=== PATIENT | female | born 1960 | race Caucasian/White ===

== ENCOUNTER → 2017-11-23 13:29 | Outpatient (CLI) | payer BC, SELFPAY ==
--- NOTE | 2017-11-23 13:33 | RAD_ITS ---
STUDY: X-RAY - LUMBAR SPINE REASON FOR EXAM: Female, 57 years old. Left side lower back pain. TECHNIQUE: 5 view(s) of the lumbar spine were obtained. COMPARISON: None FINDINGS: Normal lumbar lordosis. There is no substantial scoliosis. There is a normal alignment of the vertebrae. There is multilevel endplate spondylosis of the lumbar vertebrae. There is multi-level degenerative disc disease with multi-level disc space narrowing. The soft tissue structures are unremarkable. RAD/L/S Spine Min 4 Views IMPRESSION: Degenerative changes of the spine, as detailed above. Electronically Signed: Mary Carmen Burch MD at 23:37 EDT Tel , Service support ,
== END ==
PROVIDERS: Family Provider Family Medicine; PCP Family Medicine; Visit Provider Nurse Practitioner Family
DX: M54.5 Low back pain (principal)
CPT/HCPCS: 72110

== ENCOUNTER → 2018-06-08 13:46 | Outpatient (CLI) | payer BC, SELFPAY ==
[2018-06-13 11:12] LABS: HPV Reflexed? NOT INDICATED
== END ==
PROVIDERS: Visit Provider Obstetrics & Gynecology
DX: Z12.4 Encounter for screening for malignant neoplasm of cervix (principal)
CPT/HCPCS: 87624; 88175; G0145

== ENCOUNTER → 2019-08-08 07:10 | Outpatient (CLI) | payer SELFPAY ==
--- NOTE | 2019-08-08 07:16 | BI_ITS ---
MAMMOGRAPHY - BILATERAL SCREENING REASON FOR EXAM: Female, 59 years old. Routine annual screening examination. PERTINENT HISTORY: Non-contributory. TECHNIQUE: Digital bilateral breast malaika (3D mammographic acquisition) in the CC and MLO projections. 2-D mediolateral oblique (MLO) and craniocaudad (CC) views of both breasts were obtained. CAD: Full Field Digital Mammography with Computer Added Detection was performed. COMPARISON: Comparison is made with prior study dated June 07, 2017 and June 02, 2016. FINDINGS: Breast Composition: There are scattered areas of fibroglandular density. There are no dominant masses or suspicious calcifications. Stable benign-appearing bilateral axillary lymph nodes. No other significant abnormalities are identified. There has been no significant change since the prior study. BI/SCREEN MAMM (CAD) W/MALAIKA BILAT IMPRESSION: Stable bilateral screening mammogram. Yearly follow-up mammogram recommended. (A) ASSESSMENT CATEGORY: BIRADS Category 2: Benign. A letter regarding these results will be sent to the patient by the facility within 30 days. Approximately 10% of breast cancers are not detected by mammography. A normal mammogram should not delay biopsy of a clinically suspicious abnormality. [id number] Electronically Signed: Juan Fischer, at 9:21 EST , Service support ,
== END ==
PROVIDERS: Family Provider Family Medicine; PCP Family Medicine; Referring Provider Obstetrics & Gynecology; Visit Provider Obstetrics & Gynecology
DX: Z12.31 Encounter for screening mammogram for malignant neoplasm of breast (principal)
CPT/HCPCS: 77063; 77067

== ENCOUNTER → 2020-09-03 11:12 | Outpatient (CLI) | payer SELFPAY ==
[2020-09-08 15:24] LABS: HPV Reflexed? NOT INDICATED
== END ==
PROVIDERS: PCP Family Medicine; Visit Provider Obstetrics & Gynecology
DX: Z12.4 Encounter for screening for malignant neoplasm of cervix (principal)
CPT/HCPCS: 88175; G0145

== ENCOUNTER → 2020-09-16 16:11 | Outpatient (CLI) | payer SELFPAY ==
--- NOTE | 2020-09-16 16:19 | BI_ITS ---
MAMMOGRAPHY - BILATERAL SCREENING REASON FOR EXAM: Female, 60 years old. Routine annual screening examination. PERTINENT HISTORY: Non-contributory. TECHNIQUE: Digital bilateral breast malaika (3D mammographic acquisition) in the CC and MLO projections. 2-D mediolateral oblique (MLO) and craniocaudad (CC) views of both breasts were obtained. CAD: Full Field Digital Mammography with Computer Added Detection was performed. COMPARISON: Comparison is made with prior study dated 08/08/2019 and 06/07/2017. FINDINGS: Breast Composition: There are scattered areas of fibroglandular density. There are no dominant masses or suspicious calcifications. Stable small benign-appearing axillary lymph nodes. No other significant abnormalities are identified. There has been no significant change since the prior study. BI/SCRN MAMM (CAD)W/MALAIKA BILAT IMPRESSION: Stable bilateral screening mammogram. Yearly follow-up mammogram recommended. (A) ASSESSMENT CATEGORY: BIRADS Category 2: Benign. A letter regarding these results will be sent to the patient by the facility within 30 days. Approximately 10% of breast cancers are not detected by mammography. A normal mammogram should not delay biopsy of a clinically suspicious abnormality. [id number] Electronically Signed: Juan Fischer MD at 8:20 EST , Service support ,
== END ==
PROVIDERS: PCP Family Medicine; Referring Provider Obstetrics & Gynecology; Visit Provider Obstetrics & Gynecology
DX: Z12.31 Encounter for screening mammogram for malignant neoplasm of breast (principal)
CPT/HCPCS: 77063; 77067

== ENCOUNTER → 2021-08-19 | Outpatient (CLI) | payer MEDICARE, SELFPAY | END | disposition home or self-care (01) | LOC: LABSPEC 10:55 | PROVIDERS: PCP Family Medicine; Referring Provider Physician Assistant; Visit Provider Physician Assistant | DX: Z11.52 Encounter for screening for COVID-19 (principal) | CPT/HCPCS: 87635; U0003; U0005 ==

== ENCOUNTER 2021-10-07 08:49 | Outpatient (CLI) | payer SELFPAY ==
[2021-10-07 10:15] LABS: Hematocrit 40.2 % (37-47); Hemoglobin 13.5 g/dL (12.0-15.0); Mean Corp Hgb Conc 33.6 g/dL (32-36); Mean Corpuscular Hgb 31.8 pg (27.0-32.0); Mean Corpuscular Volume 94.6 fL (81-99); Mean Platelet Vol. 11.3 fl (6.2-12.0); Platelet Count 273 K/mm3 (150-450); RBC Distribution Width CV 12.5 % (11.6-14.6); RBC Distribution Width SD 43.2 fl (35.1-43.9); Red Blood Count 4.25 M/mm3 (4.2-5.4); White Blood Count 5.8 K/mm3 (4.4-11.0)
[2021-10-07 11:02] LABS: Anion Gap 4 (5-15); BUN 11 mg/dL (7-18); BUN/Creat Ratio 15.9 RATIO (10-20); Calcium,Total 9.2 mg/dL (8.5-10.1); Chloride 108 mmol/L (98-107); Cholesterol 157 mg/dL (200); Creatinine, Serum 0.69 mg/dL (0.55-1.02); EST Glomerular Filtration Rate 91 mL/min (>60); Est Glom Filt Rate - Afr Amer 110 mL/min (>60); Glucose 83 mg/dL (74-106); High Density Lipoprotein 45 mg/dL; Potassium 3.7 mmol/L (3.5-5.1); Sodium Level 139 mmol/L (136-145); Thyroid Stim Hormone (TSH) 1.98 uIU/mL (0.358-3.74); Triglycerides 175 mg/dL; Very Low Density Lipoprotein 35 mg/dL (5-40)
== END 2021-10-07 23:59 | disposition home or self-care (01) ==
PROVIDERS: PCP Family Medicine; Referring Provider Family Medicine; Visit Provider Family Medicine
DX: Z00.00 Encounter for general adult medical examination without abnormal findings (principal)
CPT/HCPCS: 36415; 80048; 80061; 84443; 85027

== ENCOUNTER 2021-10-20 08:30 | Outpatient (CLI) | payer SELFPAY ==
--- NOTE | 2021-10-20 08:35 | BI_ITS ---
MAMMOGRAPHY - BILATERAL SCREENING REASON FOR EXAM: Female, 61 years old. Routine annual screening examination. PERTINENT HISTORY: Non-contributory. Remote right ultrasound-guided breast biopsy. TECHNIQUE: Digital bilateral breast malaika (3D mammographic acquisition) in the CC and MLO projections. 2-D mediolateral oblique (MLO) and craniocaudad (CC) views of both breasts were obtained. CAD: Full Field Digital Mammography with Computer Added Detection was performed. COMPARISON: Comparison is made with prior examination dated 03/16/2021 and 08/08/2019. FINDINGS: Breast Composition: There are scattered areas of fibroglandular density. There are no dominant masses or suspicious calcifications. Stable small benign-appearing bilateral axillary lymph nodes. No other significant abnormalities are identified. There has been no significant change since the prior study. BI/SCRN MAMM (CAD)W/MALAIKA BILAT IMPRESSION: Stable bilateral screening mammogram. Yearly follow-up mammogram recommended. (A) ASSESSMENT CATEGORY: BIRADS Category 2: Benign. A letter regarding these results will be sent to the patient by the facility within 30 days. Approximately 10% of breast cancers are not detected by mammography. A normal mammogram should not delay biopsy of a clinically suspicious abnormality. [id number] Electronically Signed: Juan Fischer MD at 9:51 EST ,
== END 2021-10-20 23:59 | disposition home or self-care (01) ==
PROVIDERS: PCP Family Medicine; Visit Provider Obstetrics & Gynecology
DX: Z12.31 Encounter for screening mammogram for malignant neoplasm of breast (principal)
CPT/HCPCS: 77063; 77067

== ENCOUNTER → 2022-10-25 | Outpatient (CLI) | payer SELFPAY ==
--- NOTE | 2022-10-25 07:49 | BI_ITS ---
MAMMOGRAPHY - BILATERAL SCREENING REASON FOR EXAM: Female, 62 years old. Routine annual screening examination. PERTINENT HISTORY: Non-contributory. Remote right ultrasound-guided breast biopsy. TECHNIQUE: Digital bilateral breast malaika (3D mammographic acquisition) in the CC and MLO projections. 2-D mediolateral oblique (MLO) and craniocaudad (CC) views of both breasts were obtained. CAD: Full Field Digital Mammography with Computer Added Detection was performed. COMPARISON: Comparison is made with prior study October 20, 2021 and September 16, 2020. FINDINGS: Breast Composition: There are scattered areas of fibroglandular density. There are no dominant masses or suspicious calcifications. Stable small benign-appearing bilateral axillary lymph nodes. No other significant abnormalities are identified. There has been no significant change since the prior study. BI/SCRN MAMM (CAD)W/MALAIKA BILAT IMPRESSION: Stable bilateral screening mammogram. Yearly follow-up mammogram recommended. (A) ASSESSMENT CATEGORY: BIRADS Category 2: Benign. A letter regarding these results will be sent to the patient by the facility within 30 days. Approximately 10% of breast cancers are not detected by mammography. A normal mammogram should not delay biopsy of a clinically suspicious abnormality. [id number] Electronically Signed: Juan Fischer MD at 8:33 EST ,
== END | disposition home or self-care (01) ==
LOC: OPBI 07:45
PROVIDERS: PCP Family Medicine; Visit Provider Student in an Organized Health Care Education/Training Program
DX: Z12.31 Encounter for screening mammogram for malignant neoplasm of breast (principal)
CPT/HCPCS: 77063; 77067

== ENCOUNTER → 2023-05-19 | Outpatient (CLI) | payer SELFPAY | END | disposition home or self-care (01) | LOC: LABSPEC 15:30 | PROVIDERS: PCP Family Medicine; Visit Provider Family Medicine | DX: R30.0 Dysuria (principal) | CPT/HCPCS: 87086; 87088; 87186 ==

== ENCOUNTER 2023-06-04 11:39 | Emergency (ER) | payer SELFPAY ==
[2023-06-04 11:40] VITALS: BP 156/93; PULSE 90; RESP 18; TEMP 35.9; O2SAT 97
--- NOTE | 2023-06-04 11:53 | EDS_ITS ---
HPI <NATASHA Phelps - Last Filed: 06/04/23 13:05> History of Present Illness Chief Complaint: Lower Extremity Injury Narrative Narrative: Patient presenting today due to pain to her left ankle. She reports that last night she was trying to get into bed when she tripped on the handles of her overnight bag and twisted her ankle, she is unsure of the exact mechanism, but she did not fall or hit her head or injure herself in any other way. She reports that throughout the night her ankle was throbbing and today she has been unable to put pressure on it to ambulate. She did find crutches in her garage and has been using those. She took ibuprofen this morning for the pain. PMH includes depression and GERD. PFSH <NATASHA Phelps - Last Filed: 06/04/23 13:05> PFSH Home Medications hydrocodone-acetaminophen 5-325mg 5mg-325mg 1 tab PO Q4H PRN PRN Pain 2 days #10 TABLETS 06/04/23 [Rx Last Taken Unknown] Allergy/AdvReac Type Severity Reaction Status Date / Time No Known Allergies Allergy Verified 06/04/23 11:39 Social History Smoking Status: Current every day smoker tobacco type: cigarettes ROS <NATASHA Phelps - Last Filed: 06/04/23 13:05> ROS ED Constitutional Constitutional ED: Denies chills or fever(s) Cardiovascular Cardiovascular: Denies chest pain Respiratory/Chest Respiratory/Chest: Denies cough or dyspnea Gastrointestinal Gastrointestinal: Denies abdominal pain, nausea or vomiting Musculoskeletal Musculoskeletal: Reports arthralgias; Denies myalgias Integumentary Denies Abrasions Neurologic Neurologic: Denies paresthesias or weakness EXAM <NATASHA Phelps - Last Filed: 06/04/23 13:05> Physical Exam Const Vital Signs: 06/04/23 11:40 Temperature 96.6 F L Temperature Source Temporal Pulse Rate 90 Respiratory Rate 18 Blood Pressure 156/93 H Blood Pressure Mean 114 Pulse Ox 97 Oxygen Delivery Method Room Air Positive well nourished, well developed and no apparent distress General Appearance ED: well developed HEENT Reports normocephalic and head/scalp atraumatic Mouth ED: Yes moist mucous membranes normal Eyes PERRL and EOMs intact bilaterally Neck full ROM and supple Chest Wall inspection of chest normal Resp normal respiratory effort and clear to auscultation bilaterally Cardio regular rate and regular rhythm GI soft to palpation, non-tender, non-distended and no masses Back/Spine normal ROM and normal to inspection Extremity Extremity Narrative: Edema and ecchymosis to the left ankle with tenderness to palpation to the medial and lateral malleolus, no pain to the proximal fibula. DP pulse 2+ and equal bilaterally, good capillary, sensation intact. Neuro oriented x3, CN's II-XII intact bilaterally, moves all extremities, no focal motor deficits and no sensory deficits noted Sensorium / Orientation: awake and alert Psych mental status grossly normal and thought process normal Skin no rashes or lesions noted and no wounds <Dr. Heavenly Steinberg DO - Last Filed: 06/04/23 15:44> Physical Exam Const Vital Signs: 06/04/23 11:40 Temperature 96.6 F L Temperature Source Temporal Pulse Rate 90 Respiratory Rate 18 Blood Pressure 156/93 H Blood Pressure Mean 114 Pulse Ox 97 Oxygen Delivery Method Room Air MDM <NATASHA Phelps - Last Filed: 06/04/23 13:05> [facility] Narrative Medical decision making narrative: Patient presenting today with pain to her left ankle after getting it caught in a strap on her bed last night causing her to twist her ankle, but she did not fall, she reports having pain throughout the night and is not able to bear weight. She does have significant swelling and ecchymosis to her left ankle with tenderness to the lateral and medial malleolus. She does not have any tenderness to her foot or proximal fibula. X-ray of the ankle will be obtained, she declined any analgesia here. Patient does have a bimalleolar fracture to her ankle, this was discussed with orthopedics who recommended patient be placed in a splint and be nonweightbearing with crutches. Patient reports that she will be able to do this at home. She has been given RICE instructions, she will be given [place] for pain and is to follow-up with Ortho. She will be discharged home in stable condition and is comfortable with plan. I have personally performed a face to face assessment of the patient and have reviewed the ARAMIS Note. I performed a substantive portion of the visit including all aspects of the following. My bales findings include: History is [patient presents to the emergency department with complaint of injury to the left ankle that occurred last evening. Patient states that she got her foot and ankle caught in a strap causing her to twist her ankle. She did not actually fall. Today she is having significant swelling and discoloration and unable to bear weight. Patient denies any other injuries.] Exam is [HEENT-PERRLA, EOMI. Cranial nerves II through XII grossly intact. TMs clear. Mucous membranes moist. No adenopathy. Cardiovascular-regular rate and rhythm without murmur or ectopy Lungs-clear to auscultation, chest wall stable without crepitus or subcu emphysema Abdomen-normoactive bowel sounds, soft, nontender, no rebound or rigidity, no peritoneal signs. Extremities-intact ?4. Left ankle-patient has diffuse soft tissue swelling about the medial and lateral malleolus with tenderness to palpation over both malleoli. No pain at the proximal fibular head. No pain at the base of the fifth metatarsal. Neurovascularly intact.] Medical Decison Making [x-rays of the left ankle will be obtained to rule out fracture.] X-rays did show a bimalleolar fracture of the left ankle. Discussed case with Dr. Lara who is on for [facility] whom the patient has seen in the past. Patient requesting Dr. Lara for definitive care. I was asked to place the patient in a well-padded splint and have patient follow-up with his office for definitive care. Patient advised to be nonweightbearing. She will be given a prescription for [place] for pain. Patient advised to ice and elevate the extremity. Other additions or changes: [None] Radiography X-Ray: Read by ED Physician and Read by Radiologist Diagnostic Testing: Clinical Impression(s) from Imaging Studies Ankle X-Ray 06/04/23 11:53 IMPRESSION: Fractures of the distal tibia and fibula. Electronically Signed: Rohan Yoo MD at 12:28 EDT , <Dr. Heavenly Steinberg, DO - Last Filed: 06/04/23 15:44> [facility] MDM Narrative Medical decision making narrative: Patient presenting today with pain to her left ankle after getting it caught in a strap on her bed last night causing her to twist her ankle, but she did not fall, she reports having pain throughout the night and is not able to bear weight. She does have significant swelling and ecchymosis to her left ankle with tenderness to the lateral and medial malleolus. She does not have any tenderness to her foot or proximal fibula. X-ray of the ankle will be obtained, she declined any analgesia here. I have personally performed a face to face assessment of the patient and have reviewed the ARAMIS Note. I performed a substantive portion of the visit including all aspects of the following. My bales findings include: History is [patient presents to the emergency department with complaint of injury to the left ankle that occurred last evening. Patient states that she got her foot and ankle caught in a strap causing her to twist her ankle. She did not actually fall. Today she is having significant swelling and discoloration and unable to bear weight. Patient denies any other injuries.] Exam is [HEENT-PERRLA, EOMI. Cranial nerves II through XII grossly intact. TMs clear. Mucous membranes moist. No adenopathy. Cardiovascular-regular rate and rhythm without murmur or ectopy Lungs-clear to auscultation, chest wall stable without crepitus or subcu emphysema Abdomen-normoactive bowel sounds, soft, nontender, no rebound or rigidity, no peritoneal signs. Extremities-intact ?4. Left ankle-patient has diffuse soft tissue swelling about the medial and lateral malleolus with tenderness to palpation over both malleoli. No pain at the proximal fibular head. No pain at the base of the fifth metatarsal. Neurovascularly intact.] Medical Decison Making [x-rays of the left ankle will be obtained to rule out fracture.] X-rays did show a bimalleolar fracture of the left ankle. Discussed case with Dr. Lara who is on for [facility] whom the patient has seen in the past. Patient requesting Dr. Lara for definitive care. I was asked to place the patient in a well-padded splint and have patient follow-up with his office for definitive care. Patient advised to be nonweightbearing. She will be given a prescription for [place] for pain. Patient advised to ice and elevate the extremity. Other additions or changes: [None] Radiography Diagnostic Testing: Clinical Impression(s) from Imaging Studies Ankle X-Ray 06/04/23 11:53 IMPRESSION: Fractures of the distal tibia and fibula. Electronically Signed: Rohan Yoo MD at 12:28 EDT , Three-view x-rays of the left ankle obtained interpreted by myself as fracture of the distal fibula and medial malleolus of the tibia. Radiology in agreement. Procedures <NATASHA Phelps - Last Filed: 06/04/23 13:05> Lower Extremity Splints Lower Extremity Splint: Orthoglass, Stirrup and - (posterior slab ) Location: Left Discharge Plan Triage Chief Complaint: Lower Extremity Injury ED Midlevel Provider: Annie Cameron ED Provider: Heavenly Steinberg Dx/Rx/DC Orders Clinical Impression: Bimalleolar ankle fracture Instructions: ED Ankle Fracture, Distal Fibula Prescriptions: New hydrocodone-acetaminophen [hydrocodone-acetaminophen] 5-325 mg tablet 1 tab PO Q4H PRN PRN (Reason: Pain) 2 Days Qty: 10 0RF Primary Care Provider: Barrera Mccullough Referrals: Barrera Mccullough MD [Primary Care Provider] - Caleb Lara MD [Med Staff - Active Staff] - 3-5 Days Disposition Disposition: Home, Self Care Discharge Date/Time: 06/04/23 13:11
--- NOTE | 2023-06-04 11:53 | RAD_ITS ---
STUDY: X-RAY - LEFT ANKLE REASON FOR EXAM: Female, 62 years old. Pain TECHNIQUE: 3 view(s) of the ankle. COMPARISON: None. FINDINGS: There is acute transverse fracture of the medial malleolus of the distal tibia. There is acute oblique fracture of the distal fibula. Normal tibiotalar articulation and ankle mortise. Normal visualized talus and calcaneus. The visualized subtalar, talonavicular, calcaneocuboid and tarsal articulations are normal. There is soft tissue swelling. RAD/Ankle min 3 Views IMPRESSION: Fractures of the distal tibia and fibula. Electronically Signed: Rohan Yoo MD at 12:28 EDT ,
[2023-06-04 11:54] VITALS: BMI 32.5
== END 2023-06-04 13:11 | disposition home or self-care (01) ==
PROVIDERS: Emergency Provider Emergency Medicine; PCP Family Medicine; Visit Provider Emergency Medicine
DX: S82.842A Displaced bimalleolar fracture of left lower leg, initial encounter for closed fracture (principal); F17.210 Nicotine dependence, cigarettes, uncomplicated; W22.8XXA Striking against or struck by other objects, initial encounter
CPT/HCPCS: 29515; 73610; 99282

== ENCOUNTER → 2023-08-01 | Outpatient (CLI) | payer SELFPAY ==
--- NOTE | 2023-08-01 08:24 | BD_ITS ---
STUDY: DUAL ENERGY X-RAY ABSORPTIOMETRY / DXA REASON FOR EXAM: Female, 63 years old. FX L LOWER TECHNIQUE: Bone Mineral Density (BMD) measurements of lumbar spine and bilateral hips were obtained. COMPARISON: None. FINDINGS: Lumbar Spine (L1-L4): g/cm2 (1.134) / T-score (0.9) / Z-score (2.6) Findings are suggestive of normal bone density with a low fracture risk. Left Femur Total: g/cm2 (0.737) / T-score (-1.7) / Z-score (-0.5) Left Femoral Neck: g/cm2 (0.632) / T-score (-2.0) / Z-score (-0.5) Right Femur Total: g/cm2 (0.721) / T-score (-1.8) / Z-score (-0.6) Right Femoral Neck: g/cm2 (0.568) / T-score (-2.5) / Z-score (-1.1) BD/Dexa Bone Density Study IMPRESSION: The patient is considered osteopenic as outlined below according to World [employer] Organization (WHO) criteria with a moderate fracture risk. Reference Information: The T-score is the number of standard deviations above or below the standard which is normal for young adults at their peak bone mineral density. The World Health Organization (WHO) interprets the T-scores as follows: Above -1 Normal bone density Between -1 and -2.5 Osteopenia Equal to / or below -2.5 Osteoporosis As a practical clinical guideline, osteopenia may be graded as follows: Mild -1 through -1.5 Moderate -1.6 through -2.0 Severe -2.1 through -2.4 The Z-score is the number of standard deviations above or below age-matched controls. A Z-score of less than -1.5 would be considered abnormal. References: 1. NIH Osteoporosis and Related Bone Diseases www osteo.org 2. International Society for Clinical Densitometry www iscd.org 3. National Osteoporosis Foundation www nof.org Electronically Signed: Juan Fischer MD at 11:09 EST ,
== END | disposition home or self-care (01) ==
LOC: OPBD 08:20
PROVIDERS: PCP Family Medicine; Referring Provider Specialist; Visit Provider Specialist
DX: S82.842A Displaced bimalleolar fracture of left lower leg, initial encounter for closed fracture (principal)
CPT/HCPCS: 77080

== ENCOUNTER → 2023-09-05 | Outpatient (CLI) | payer SELFPAY ==
[2023-09-05 17:32] LABS: Absolute Lymphocyte Count 1.92 X10^3/uL (0.83-4.51); Absolute Neutrophil Count 2.6 X10^3/uL (2.0-7.7); Basophil# 0.05 X10^3/uL; Eosinophil# 0.04 X10^3/uL; Eosinophils% 0.8 % (0-5); Hematocrit 38.8 % (37-47); Hemoglobin 12.8 g/dL (12.0-15.0); Lymphocyte # 1.92 X10^3/ul (0.83-4.51); Lymphocyte % 38.2 % (19-41); Mean Corpuscular Hgb 30.9 pg (27.0-32.0); Mean Corpuscular Volume 93.7 fL (81-99); Mean Platelet Vol. 11.5 fl (6.2-12.0); NRBC Flagged by Analyzer 0 % (0-5); Neutrophil # 2.61 X10^3/uL (2.7-7.7); Neutrophil % 51.8 % (47-70); Platelet Count 248 K/mm3 (150-450); RBC Distribution Width CV 12.8 % (11.6-14.6); RBC Distribution Width SD 44.2 fl (35.1-43.9); Red Blood Count 4.14 M/mm3 (4.2-5.4)
[2023-09-05 18:00] LABS: ALB/GLOB Ratio 1.2 RATIO (0.9-2.4); AST(SGOT) 16 U/L (15-37); Alanine Aminotransfer ALT/SGPT 17 U/L (13-56); Albumin, Serum 3.7 g/dL (3.2-5.0); Alkaline Phosphatase 98 U/L (45-117); Anion Gap 5 (5-15); BUN 8 mg/dL (7-18); BUN/Creat Ratio 7.7 RATIO (10-20); Calcium,Total 9.1 mg/dL (8.5-10.1); Chloride 112 mmol/L (98-107); Creatinine, Serum 1.04 mg/dL (0.55-1.02); EST Glomerular Filtration Rate 57 mL/min (>60); Est Glom Filt Rate - Afr Amer 69 mL/min (>60); Globulin 3.2 g/dL (2.2-4.2); Glucose 88 mg/dL (74-106); Magnesium 2.4 mg/dL (1.6-2.6); Potassium 3.9 mmol/L (3.5-5.1); Protein, Total 6.9 g/dL (6.4-8.2); Sodium Level 142 mmol/L (136-145); Thyroid Stim Hormone (TSH) 1.18 uIU/mL (0.358-3.74)
== END | disposition home or self-care (01) ==
LOC: MFPLAB 15:24
PROVIDERS: PCP Family Medicine; Visit Provider Family Medicine
DX: R00.2 Palpitations (principal)
CPT/HCPCS: 36415; 80053; 83735; 84443; 85025

== ENCOUNTER → 2023-11-02 | Outpatient (CLI) | payer SELFPAY ==
--- OUTSIDE RECORDS SUMMARY | 2023-11-02 20:11 | XMS RPT_ITS | CCD ---
Author Name Unknown Address [address] [place] [address] Organization [facility] Care Team Providers Care Lead Technologist In Cytogenetics Name Role Phone Renetta ALEGRIA, Anand Fernandez Primary Care Provider RENETTA ALEGRIA, DR JIM Primary Care Ovidio FRYE MD, DR MARSHAL Jenkins Attending Unavailab le Medications Completed/Discontinued Medications Medication Drug Class(es) Dates Sig (Normalized) Sig (Original) benzonatate 100 mg oral capsule (1 source) Non-narcotic Antitussive Start: 11-27-2022 take 1 capsule by mouth every eight hours as needed benzonatate (TESSALON PERLES) 100 mg capsule Take 1 capsule by mouth three times daily as needed for cough. 15 capsule 0 11/27/2022 Active Problems Active Problems Problem Classification Problem Date Documented Da te Episodic/Chronic Other gastrointestinal disorders (1 source) Irritable bowel syndrome; Translations: [Irritable bowel syndrome without diarrhea] Onset: 03-10-2010 03-10-2010 Chronic Other upper respiratory infections (2 sources) Sore throat symptom; Translations: [Acute pharyngitis, unspecified] Episodic Past or Other Problems Problem Classification Problem Date Documented Da te Episodic/Chronic Nonmalignant breast conditions (1 source) Breast lump; Translations: [Unspecified lump in unspecified breast] Onset: 10-15-2007 10-15-2007 Episodic Other and unspecified benign neoplasm (1 source) Benign neoplasm of colon; Translations: [Benign neoplasm of colon, unspecified] Onset: 03-10-2010 03-10-2010 Episodic Other connective tissue disease (1 source) Pain in limb; Translations: [Pain in unspecified limb] Onset: 09-11-2009 09-11-2009 Episodic Results Test Name Value Interpretation Reference Range Facil ity Vital Signs Date Time Vital Sign Value Performing Clinician Nichol caraballo 11-27-2022 10:55-0400 Body temperature 98.1 [degF] Gaby Korduba PA-C Work Phone: [facility] 11-27-2022 10:55-0400 Body weight 75.57 kg Gaby Korduba PA-C Work Phone: [facility] 11-27-2022 10:55-0400 Diastolic blood pressure 80 mm[Hg] Gaby Korduba PA-C Work Phone: [facility] 11-27-2022 10:55-0400 Heart rate 82 /min Gaby Korduba PA-C Work Phone: [facility] 11-27-2022 10:55-0400 Respiratory rate 18 /min Gaby Korduba PA-C Work Phone: [facility] 11-27-2022 10:55-0400 SaO2% (BldA) [Mass fraction] 96 % Gaby Korduba PA-C Work Phone: [facility] 11-27-2022 10:55-0400 Systolic blood pressure 132 mm[Hg] Gaby Korduba PA-C Work Phone: [facility] Encounters Encounter Date Encounter Type Care Provider Facility Start: 2023 End: 06-06-[address] ANAND JACKSON MD Facility: Start: 11-27-2022 End: 11-27-2022 ambulatory ANAND JACKSON Facility:[facility] Start: 11-27-2022 End: 11-27-2022 Patient encounter procedure Gaby Dago Korduba PA-C Work Phone: [facility] Procedures Date Procedure Procedure Detail Performing Clinician Start: 11-27-2022 STREP A MOLECULAR (POC) [facility] Provider Start: 05-26-2014 Mammography Gaby Melendezd uba PA-C Work Phone: Start: 03-10-2010 Colonoscopy Gabyjess Melendezd uba PA-C Work Phone: Plan of Treatment Date Care Activity Detail Author Start: 04-21-2023 Influenza vaccination INFLUENZA (Season Ended) [facility] Start: 08-21-2022 DEPRESSION ASSESSMENT DEPRESSION ASSESSMENT [facility] Start: 03-10-2020 Colonoscopy COLONOSCOPY [facility] Start: 03-10-2020 COLORECTAL CANCER SCREENING COLORECTAL CANCER SCREENING [facility] Start: 04-04-2017 PAP TESTING PAP TESTING [facility] Start: 08-07-2016 Urine microalbumin profile DTAP,TDAP,TD (2 - Td or Tdap) [facility] Start: 05-26-2015 Mammography MAMMOGRAM [facility] Start: 01-15-2013 DIABETES SCREEN DIABETES SCREEN [facility] Start: 09-15-2009 LIPID SCREEN LIPID SCREEN [facility] Start: 2009 SHINGRIX VACCINE (1 of 2) SHINGRIX VACCINE (1 of 2) [facility] Start: 2004 COLOGUARD (FIT-DNA) COLOGUARD (FIT-DNA) [facility] Start: [address] COLONOGRAPHY [facility] Start: 2004 FECAL OCCULT BLOOD FECAL OCCULT BLOOD [facility] Start: 2004 SIGMOIDOSCOPY SIGMOIDOSCOPY [facility] Start: 1989 HPV TESTING HPV TESTING [facility] Start: 1977 HEPATITIS C SCREENING HEPATITIS C SCREENING [facility] Start: 1977 HIV SCREENING HIV SCREENING [facility] Start: 1965 PNEUMOCOCCAL (1 - PCV) PNEUMOCOCCAL (1 - PCV) [facility] Start: 1959 COVID-19 VACCINE (#1) COVID-19 VACCINE (#1) [facility] STREP A MOLECULAR (POC) STREP A MOLECULAR (POC) Microbiology Routine Sore throat Ordered: 11/27/2022 [facility] Work Phone: Immunizations Immunization Date Immunization Notes Care Provider Reginaldo melendez 08-07-2006 tetanus toxoid, redu dexter diphtheria toxoid, and acellular pertussis vaccine, adsorbed Gaby Espana PA-C Work Phone: [facility] Work Phone: Payers Date Payer Category Payer Self-pay 1960 Unknown [id number] Social History Date Type Detail Facility Start: 07-18-2012 Tobacco smoking stat us NHIS Occasional tobacco smoker [facility] Start: 07-18-2012 Tobacco use and exposure Smokeless t obacco non-user [facility] Start: 11-27-2022 Alcohol intake 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 Author Type: Physician Post Framer Type: Progress Notes Filed: 11/27/2022 11:23 AM Note Text: SUBJECTIVE Cristofer Bee is a 62 year old female who presents with 3 days of symptoms that are stable. Symptoms include: Fever (?100.4F): No or Chills: No Cough: Yes Shortness of breath: No or Difficulty breathing: No Fatigue: No Muscle aches: No Headache: No Sore throat: Yes Nasal congestion: Yes or Rhinorrhea: No PAST MEDICAL HISTORY Diagnosis Date Benign neoplasm of colon GERD (gastroesophageal reflux disease) PAST SURGICAL HISTORY Procedure Laterality Date ARTHROSCOPY KNEE DIAGNOSTIC W/WO SYNOVIAL BX SPX Arthroscopy, knee COLONOSCOPY FLX DX W/COLLJ SPEC WHEN PFRMD 1997 Colonoscopy COLONOSCOPY FLX DX W/COLLJ SPEC WHEN PFRMD 03/10/2010 Colonoscopy OPEN REPAIR OF ROTATOR CUFF ACUTE 2006 R Rotator cuff repair ALLERGIES Patient has no known allergies. MEDICATIONS sertraline (ZOLOFT) 100 mg tablet Take by mouth. fluticasone (FLONASE) 50 mcg/actuation nasal spray Use 2 Sprays in each nostril once daily. Rinse mouth after use. oxybutynin (DITROPAN) 5 mg tablet Take 5 mg by mouth twice daily. pantoprazole (PROTONIX) 40 mg ORAL tablet Take 1 tablet by mouth once daily. (Patient not taking: Reported on 11/27/2022) fluoxetine hcl(PROZAC 20 MG CAP) Take one(1) capsule daily. FAMILY HISTORY Problem Relation Age of Onset None Mother None Father None Sister None Brother None Brother None Brother Social History Tobacco Use Smoking status: Some Days Smokeless tobacco: Never Substance Use Topics Alcohol use: No Drug use: No Exposures: Sick contacts? No Family or close contacts with confirmed/probable COVID-19 in last 14 days? No OBJECTIVE BP 132/80 Pulse 82 Temp 36.7 ?C (98.1 ?F) (Tympanic) Resp 18 Wt 75.6 kg (166 lb 9.6 oz) LMP 05/20/2006 SpO2 96% GENERAL: well appearing, alert, in no acute distress HEENT: no conjunctival injection, pupils equal, moist mucous membranes, pharyngeal erythema noted, and no sinus tenderness. TMs clear bilaterally PULMONARY: breathing comfortably on room air , no coughing noted, no wheezing noted, and lungs CTA bilaterally Heart: RRR Results for orders placed or performed in visit on 11/27/22 STREP A MOLECULAR (POC) Result Value Ref Range Strep A (POCT) Negative Negative Procedural Control Valid ASSESSMENT/PLAN ASSESSMENT/PLAN: 1. Sore throat - ICD9: 462, ICD10: J02.9 (primary diagnosis) - suspect viral - Alere Strep Test neg, no culture pending - Discussed supportive care treatment with fluids, rest and analgesia. - Call back if drooling, increased temperature, symptoms of dehydration and/or still sick in one week - STREP A MOLECULAR (POC) 2. Upper respiratory tract infection, unspecified type - ICD9: 465.9, ICD10: J06.9 - Discussed viral etiology and rationale for treatment. - Symptomatic treatment with prn analgesia - Supportive care with fluids and rest Tessalon perles for cough Flonase and behind the counter sudafed for congestion Gaby Espana PA-C Patient declines covid and flu testing here [facility] Instructions 11-27-2022 Patient Instructions Note Date & Type Note Facility 11-27-2022 Instructions Gaby Espana PA-C - 11/27/2022 11:11 AM EDT Fever- To help treat a fever: Drink plenty of fluids and stay well hydrated. Eat small amounts of easy to digest food. Rest. Your body needs rest to recover, but getting up and moving around the house frequently is a good idea. You should try to continue doing your normal daily activities (bathing, toileting, grooming, cooking), though you will probably feel tired, and need to rest often. Avoid any heavy activity or exercise, as this will increase your body temperature. Dress in light clothing and stay covered in a light sheet. Keep the room temperature cool. Take a slightly warm (not cold or cool) bath, or apply damp washcloths to the forehead and wrists. Cough- To help treat a cough: Stay well hydrated. Try warm water or tea with lemon and/or honey to help soothe the cough. Use a humidifier to add moisture to the air. Try a product with menthol, like a cough drop or a rub for your chest such as Vicks, which can help reduce cough. Try cough drops. Avoid smoking and other strong odors or perfumes. Try breathing exercises to keep your lungs open and clear. Take a big deep breath through your nose and hold for 5 seconds before slowly releasing. Repeat frequently, while you are awake. Congestion- Treatment can help relieve symptoms: Try OTC nasal saline spray, or nasal saline rinse to relieve mucus congestion. Nasal strips can help keep nasal passages open, to increase airflow. Elevating your head with an extra pillow in bed can help reduce congestion. Using a humidifier can increase moisture in the air, and make breathing easier. Sore Throat- can be managed at home by: Stay well hydrated. Gargle with salt water - mix teaspoon salt with 1 cup of warm water and gargle. This helps to loosen mucus in the back of the throat and may reduce discomfort. Try ice chips, popsicles or lozenges to soothe the throat. Nausea/Vomiting/Diarrhea- These are common symptoms, and staying hydrated is most important. If you are nauseous or vomiting, start with small sips of water every 10-15 minutes and increase as tolerated. You can try sucking an ice cube too. If tolerating, you can try pedialyte or Gatorade, or flat sprite or jameson-margareth. Start slowly and increase as you are able to. Instead of meals, try smaller, more frequent snacks. Try eating bland foods like crackers, toast, rice, and applesauce. Avoid spicy, greasy or fried foods and dairy containing foods. Even if you aren't feeling hungry due to lack of smell or taste, it is important to try to take in some food when you are able. After drinking and eating, rest in an upright position for up to two hours as needed to help decrease nauseous feelings. Try closing your eyes, avoid moving and watching TV. Avoid strong odors that can make you feel more nauseated. When to seek emergency medical attention Look for emergency warning signs for COVID-19. If having any of these symptoms, seek emergency medical care immediately: Trouble breathing Persistent pain or pressure in the chest New confusion Inability to wake or stay awake Bluish lips or face *This list is not all possible symptoms. Please call your medical provider for any other symptoms that are severe or concerning to you. documented in this encounter [facility] History of Present illness Narrative 11-27-2022 Gaby Espana PA-C - 11/27/2022 10:57 AM EDT Note Date & Type Note Facility 11-27-2022 History of Presen t illness Narrative SUBJECTIVE Cristofer Bee is a 62 year old female who presents with 3 days of symptoms that are stable. Symptoms include: Fever (?100.4F): No or Chills: No Cough: Yes Shortness of breath: No or Difficulty breathing: No Fatigue: No Muscle aches: No Headache: No Sore throat: Yes Nasal congestion: Yes or Rhinorrhea: No PAST MEDICAL HISTORY Diagnosis Date Benign neoplasm of colon GERD (gastroesophageal reflux disease) PAST SURGICAL HISTORY Procedure Laterality Date ARTHROSCOPY KNEE DIAGNOSTIC W/WO SYNOVIAL BX SPX Arthroscopy, knee COLONOSCOPY FLX DX W/COLLJ SPEC WHEN PFRMD 1997 Colonoscopy COLONOSCOPY FLX DX W/COLLJ SPEC WHEN PFRMD 03/10/2010 Colonoscopy OPEN REPAIR OF ROTATOR CUFF ACUTE 2005 R Rotator cuff repair ALLERGIES Patient has no known allergies. MEDICATIONS sertraline (ZOLOFT) 100 mg tablet Take by mouth. fluticasone (FLONASE) 50 mcg/actuation nasal spray Use 2 Sprays in each nostril once daily. Rinse mouth after use. oxybutynin (DITROPAN) 5 mg tablet Take 5 mg by mouth twice daily. pantoprazole (PROTONIX) 40 mg ORAL tablet Take 1 tablet by mouth once daily. (Patient not taking: Reported on 11/27/2022) fluoxetine hcl(PROZAC 20 MG CAP) Take one(1) capsule daily. FAMILY HISTORY Problem Relation Age of Onset None Mother None Father None Sister None Brother None Brother None Brother Social History Tobacco Use Smoking status: Some Days Smokeless tobacco: Never Substance Use Topics Alcohol use: No Drug use: No Exposures: Sick contacts? No Family or close contacts with confirmed/probable COVID-19 in last 14 days? No OBJECTIVE BP 132/80 Pulse 82 Temp 36.7 C (98.1 F) (Tympanic) Resp 18 Wt 75.6 kg (166 lb 9.6 oz) LMP 05/20/2006 SpO2 96% GENERAL: well appearing, alert, in no acute distress HEENT: no conjunctival injection, pupils equal, moist mucous membranes, pharyngeal erythema noted, and no sinus tenderness. TMs clear bilaterally PULMONARY: breathing comfortably on room air , no coughing noted, no wheezing noted, and lungs CTA bilaterally Heart: RRR Results for orders placed or performed in visit on 11/27/22 STREP A MOLECULAR (POC) Result Value Ref Range Strep A (POCT) Negative Negative Procedural Control Valid ASSESSMENT/PLAN ASSESSMENT/PLAN: 1. Sore throat - ICD9: 462, ICD10: J02.9 (primary diagnosis) - suspect viral - Alere Strep Test neg, no culture pending - Discussed supportive care treatment with fluids, rest and analgesia. - Call back if drooling, increased temperature, symptoms of dehydration and/or still sick in one week - STREP A MOLECULAR (POC) 2. Upper respiratory tract infection, unspecified type - ICD9: 465.9, ICD10: J06.9 - Discussed viral etiology and rationale for treatment. - Symptomatic treatment with prn analgesia - Supportive care with fluids and rest Tessalon perles for cough Flonase and behind the counter sudafed for congestion Gaby Espana PA-C Patient declines covid and flu testing here documented in this encounter [facility] Evaluation note Note Date & Type Note Facility documented in this encounter [facility] Summary Purpose Family History No Family History Records FoundNo Family History Records Found Advance Directives No Advanced Directives Records FoundNo Advanced Directives Records Found Additional Source Comments Source Comments (unrecognize d section and content) In the event this informatio n is protected by the Federal Confidentiality of Alcohol and Drug Abuse Patient Records regulations: The Federal rules restrict any use of the information to criminally investigate or prosecute any alcohol or drug abuse patient.[facility] Reason for Visit (unrecogniz ed section and content) Specialty Diagnoses / Procedures Referred By Contac t Referred To Contact [facility] Diagnoses ENT issues Procedures EST SAME DAY [facility] [address] [place] [address] Referral ID Status Reason Start Date Expiration Date Visits Requested Visits Authorized [id number] Pending Review Patient Cleared - True Self-Pay required payment collected 11/27/2022 02/25/2023 1 1 Care Teams (unrecognized sec tion and content) INFORMATION SOURCE (unrecogn ized section and content) DATE CREATED AUTHOR AUTHOR'S ORGANIZ ATION 06/06/2023 [facility] FOR RECORDS PERTAINING TO PATIENTS WHO ARE OR HAVE BEEN ENROLLED IN A CHEMICAL DEPENDENCY/SUBSTANCEABUSE PROGRAM, SOME INFORMATION MAY BE OMITTED. This clinical summary was aggregated from multiple sources. Caution should be exercised in using it in the provision of clinical care. This summary normalizes information from multiple sources, and as a consequence, information in this document may materially change the coding, format and clinical context of patient data. In addition, data may be omitted in some cases. CLINICAL DECISIONS SHOULD BE BASED ON THE PRIMARY CLINICAL RECORDS. [employer] [facility]. provides no warranty or guarantee of the accuracy or completeness of information in this document.
[2023-11-06 11:08] LABS: HPV APTIMA, High Risk Negative (Negative)
== END | disposition home or self-care (01) ==
LOC: LABSPEC 11:48
PROVIDERS: PCP Family Medicine; Referring Provider Nurse Practitioner Women's Health; Visit Provider Nurse Practitioner Women's Health
DX: Z12.4 Encounter for screening for malignant neoplasm of cervix (principal)
CPT/HCPCS: 87624; 88175; G0145

== ENCOUNTER → 2023-11-17 | Outpatient (CLI) | payer SELFPAY ==
--- NOTE | 2023-11-17 13:48 | BI_ITS ---
MAMMOGRAPHY - BILATERAL SCREENING REASON FOR EXAM: Female, 63 years old. Routine annual screening examination. PERTINENT HISTORY: Non-contributory. TECHNIQUE: Digital bilateral breast malaika (3D mammographic acquisition) in the CC and MLO projections. 2-D mediolateral oblique (MLO) and craniocaudad (CC) views of both breasts were obtained. CAD: Full Field Digital Mammography with Computer Added Detection was performed. COMPARISON: Comparison is made with prior study dated October 25, 2022 and October 20, 2021. FINDINGS: Breast Composition: There are scattered areas of fibroglandular density. There are no dominant masses or suspicious calcifications. Stable small benign appearing bilateral axillary lymph nodes. No other significant abnormalities are identified. There has been no significant change since the prior study. BI/SCRN MAMM (CAD)W/MALAIKA BILAT IMPRESSION: Stable bilateral screening mammogram. Yearly follow-up mammogram recommended. (A) ASSESSMENT CATEGORY: BIRADS Category 2: Benign. A letter regarding these results will be sent to the patient by the facility within 30 days. Approximately 10% of breast cancers are not detected by mammography. A normal mammogram should not delay biopsy of a clinically suspicious abnormality. [id number] Electronically Signed: Juan Fischer MD at 15:55 EDT ,
--- NOTE | 2023-11-17 13:48 | US_ITS ---
STUDY: ULTRASOUND OF THE FEMALE PELVIS - COMPLETE REASON FOR EXAM: Female, 63 years old. Enlarged uterus TECHNIQUE: Transvaginal and transabdominal imaging. COMPARISON: None. FINDINGS: The uterus is anteverted and is in a midline position. The uterus measures 6.8 cm. Normal uterine cervix. The endometrium measures 2.2 mm in thickness, and is hyperechoic. There is no demonstrated endometrial mass. There is no demonstrated myometrial mass. I.U.D. - The patient does not have an I.U.D. The right ovary is visualized. The right ovary measures 2 cm. There is no right ovarian cyst or ovarian mass. There is no visualized right adnexal mass or complex lesion. There is normal arterial and normal venous vascularity. The left ovary is visualized. The left ovary measures 1.4 cm. There is no left ovarian cyst or ovarian mass. There is no visualized left adnexal mass or complex lesion. There is normal arterial and normal venous vascularity. There is no fluid in the cul-de-sac. Urinary bladder volume is (in cc) 395. US/Pelvic w/ Transvaginal IMPRESSION: There are no acute findings. Electronically Signed: Lloyd Morales MD at 19:01 EDT ,
== END | disposition home or self-care (01) ==
LOC: OPBI 13:47
PROVIDERS: PCP Family Medicine; Referring Provider Nurse Practitioner Women's Health; Visit Provider Nurse Practitioner Women's Health
DX: Z12.31 Encounter for screening mammogram for malignant neoplasm of breast (principal); N85.2 Hypertrophy of uterus
CPT/HCPCS: 76830; 76856; 77063; 77067

== ENCOUNTER → 2024-11-11 | Outpatient (CLI) | payer MEDICARE, SELFPAY ==
[2024-11-11 23:27] LABS: Anion Gap 14 (5-15); BUN 13 mg/dL (4-19); BUN/Creat Ratio 17.9 RATIO (10-20); Calcium,Total 9.8 mg/dL (7.6-11.0); Carbon Dioxide 22.5 mmol/L (21.0-32.0); Chloride 104 mmol/L (98-108); Creatinine, Serum 0.74 mg/dL (0.70-1.20); EST Glomerular Filtration Rate 90 (>60); Glucose 86 mg/dL (70-99); Potassium 4.2 mmol/L (3.3-5.1); Sodium Level 140 mmol/L (133-145); Vitamin D,25 Hydroxy 52.9 ng/mL (30-100)
[2024-11-12 00:22] LABS: Cholesterol 196 mg/dL (<=200); High Density Lipoprotein 64 mg/dL; Low Density Lipoprotein Calc. 110 mg/dL; Triglycerides 113 mg/dL; Very Low Density Lipoprotein 23 mg/dL (5-40); cholesterol:hdl ratio screen 3.09
== END | disposition home or self-care (01) ==
LOC: MFPLAB 10:08
PROVIDERS: PCP Family Medicine; Referring Provider Family Medicine; Visit Provider Family Medicine
DX: M85.80 Other specified disorders of bone density and structure, unspecified site (principal); Z13.220 Encounter for screening for lipoid disorders
CPT/HCPCS: 36415; 80048; 80061; 82306; 84443

== ENCOUNTER → 2024-11-18 | Outpatient (CLI) | payer MEDICARE, SELFPAY ==
--- NOTE | 2024-11-18 08:30 | BI_ITS ---
EXAM: SCRN MAMM (CAD)W/MALAIKA BILAT DATE: 11/18/2024 CLINICAL HISTORY: F, Age 64 y/o , SCREEN FOR BREAST CANCER BREAST CANCER RISK ASSESSMENT: Has not been calculated. TECHNIQUE: Bilateral screening digital breast tomosynthesis with 2D and 3D images. Computer aided detection. COMPARISON: Prior exam(s) dated 11/17/2023 and 10/25/2022. FINDINGS: TISSUE DENSITY: The breast tissue is composed of scattered area of fibroglandular density. Bilateral Breast Mammographic Findings: There are no suspicious masses, suspicious cluster of microcalcifications, architectural distortion or secondary signs of malignancy identified in either breast. A stable benign-appearing intramammary lymph node in the superior outer far posterior aspect of the right breast is noted. BI/SCRN MAMM (CAD)W/MALAIKA BILAT IMPRESSION: Right Breast: BIRADS 2 BENIGN FINDING. Left Breast: BIRADS 1 NEGATIVE. OVERALL FINAL ASSESSMENT: BIRADS 2 BENIGN FINDING RECOMMENDATION: Routine annual follow-up in 1 Year A letter with findings and recommendations will be mailed to the patient. Reading Location: [id number]
== END | disposition home or self-care (01) ==
LOC: OPBI 08:15
PROVIDERS: PCP Family Medicine; Referring Provider Nurse Practitioner Family; Visit Provider Nurse Practitioner Family
DX: Z12.31 Encounter for screening mammogram for malignant neoplasm of breast (principal)
CPT/HCPCS: 77063; 77067

== ENCOUNTER 2025-06-10 10:00 | Outpatient (RCR) | payer MEDICARE, SELFPAY ==
--- NOTE | 2025-03-26 10:14 | HP.PTEVAL_ITS ---
Patient's Visit Information Visit Information Visit Information: CRISTOFER BEE is a 64 year old F referred to Physical Therapy by SAM CAMARA with a diagnosis of OA , RCT R shoulder s/p reverse TSA 03/21/25. Date of Evaluation: 03/26/25 Physical Therapist: Shay Botello, BEBET, OCS, CSCS Visit Plan Frequency: 2x /Week Duration: 2 Months Plan: 2x/week for up to 8 weeks for IE HEP: supine stick flexiona dn er 10x, towel ir gently 10 all 3x/day, elbow AROM, scap AROM, pendulum at least 3x/day with ball squeeze. Educate on use of ice adn activitiy modification Treat with progression of manual scar massage, PROM, AAROM to AROM to stretch ROM, isometric to band strength RC and scap and eventual full body program if desired, ice as needed. Progression of activity at home Subjective Subjective: Reverse TSA R 03/21/25. Going well, Minimal pain, Mostly if moves. No restrictions, was in sling for 48 hours. Sleeping is hardest thing, rolling hurts. Sleeping in bed on back and sides. No pain meds. No exercises to do yet except pendulum. Prior RC was gone after repair in 2005 which did not help. Hard to move adn constant pain prior to surgery. Basic adLS: dresses self with mods, all I, No steps, i live by self. Is r handed. 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 Could do what needs to do at desk. Mouse work and typing. Usees headset. Hobbies: camper at [employer], sedentary, campfires. No active hobbies. Regular ex: no Pain R shoulder: Pain Intensity (Out of 10): 0 Pain Intensity Range: 0 and 4 Comment: hurts to move it, getting dresses Objective Objective: Walks into PT I with good arm swing B. Jobyalers chair and bed I. Cervical AROM WFL and without pain. R scapula depression adn retraction AROM limited vs L and slight discomfort. Bruising in uppr R arm is mild, incision is dressed and will bee taken off by doctor neext week. Skin around it is supple and patent and feels close to normal outside of the bruising. Elbow and wrist and hand AROM WFL B adn symmeetrical. sensation B UE WNL. L shoulder aROM full at 170 flexion, 45 er, t8 IR R shoulder AROM flexion 88, er 30, IR to tuberosity outter hip and uncomfortable. R shoulder PROM flexion 150, er 75, IR 40 at 80 abduction. tightness felt in IR mostly. r shoulder strength not tested, elbow and wrist 4/5, L shoulder elbow wrist 4+/5. Balance/Special Test Scores Quick DASH Score: 52.2725 Goals Goal 1:: sleep without waking 6 hours Goal Time Frame: 2 Weeks Goal 2:: AROM R shoulder 150 elevation, 55 er, L5 IR without pain Goal Time Frame: 2-4 Weeks Goal 3:: shoulder back to 90% normal and 0-1/10 pain at worst Goal Time Frame: 6-8 Weeks Goal 4:: quickdash score 15 or less Goal Time Frame: 6-8 Weeks Goal 5:: dress normally and normal ac tivity at campfire without pain increase Goal Time Frame: 6-8 Weeks Goal 6:: I final HEP for prophylaxis strength and ROM Goal Time Frame: 6-8 Weeks Rehabilitation Potential Physical Therapy Diagnosis: limited ROM, weakness r shoulder limiting function. Rehabilitation Potential: Excellent Anticipated Interventions Patient/Client Instruction: Educate patient on: Condition and Plan of Care For the Purpose of:: To decrease pain, To increase ROM, To improve nutrient delivery to tissue, To improve muscle performance and motor function and To increase tolerance to activity/condition/position Therapeutic Exercise to Include: Strength training, Postural training, Flexibilty training, Passive ROM, Active ROM and Scapular Strength/Stabilization For the Purpose of:: To decrease pain, To increase ROM, To improve nutrient delivery to tissue, To improve muscle performance and motor function, To increase tolerance to activity/condition/position and To improve ability of physical actions for home/community/work/leisure Manual Therapy Techniques to Include: Mobilization, Passive ROM and Soft tissue mobilization For the Purpose of:: To decrease pain, To increase ROM, To improve nutrient delivery to tissue, To improve muscle performance and motor function, To increase tolerance to activity/condition/position and To improve ability of physical actions for home/community/work/leisure Cryotherapy (ice pack, ice massage): Yes For the Purpose of:: To increase ROM and To improve nutrient delivery to tissue Text: Thank you for the opportunity to evaluate your patient. For Medicare and Medicare HMO plans, please review the plan of care and approve it. It will need to be FAXED BACK to us at [phone] for Medicare purposes. For Medicare only, by signing this I certify the plan of care. Please let me know if there are questions or concerns regarding this plan of care. Physician Signature: Date:
--- NOTE | 2025-04-30 08:51 | HP.PTREVAL_ITS ---
Re-Evaluation Intro: SAM CAMARA, It has been my pleasure to treat CRISTOFER BEE over the last 10 visits for OA , RCT R shoulder s/p reverse TSA 03/21/25. Please see the progress note below for an update on the physical therapy plan of care! Subjective Subjective: Doing great. Sleeping better. Sleps 8 hrs. Pain level is 1/10. Activities: wants to get back to [place], [place] grandbabies easily. Mows and weedeats OK. To next week. Still doing stick adn starting isometrics. Wants to continue therapy on a limited basis and do more at home. Objective Objective/Function: 133 flexion AROM without pain, 45 er, PSIS IR, hand behind head easily, slightly tight cross body but very [id number]. strength is 3 er, 4- IR, 4- flexion and abduction on R. Still expectedly weak. Plan Plan Plan: Pt to wrok on isometric strength at home adn f/u every couple weeks to progress to PRE strength adn ensure ROM coming along in IR and adduction. Pro latisha HEP each visit and pt to do the work at home. Next session phase 3 band and check adduction adn IR ROM, may need sleeper stretch. Balance/Gait/Functional tests Balance/Special Test Scores Quick DASH Score: 13.6350 Goals Goals Goal 1:: sleep without waking 6 hours Goal Time Frame: 2 Weeks Goal Progress: Goal Met Goal 2:: AROM R shoulder 150 elevation, 55 er, L5 IR without pain Goal Time Frame: 2-4 Weeks Goal Progress: Progressing Goal 3:: shoulder back to 90% normal and 0-1/10 pain at worst Goal Time Frame: 6-8 Weeks Goal Progress: Goal Met Goal 4:: quickdash score 15 or less Goal Time Frame: 6-8 Weeks Goal Progress: Progressing Goal 5:: dress normally and [facility] pain increase Goal Time Frame: 6-8 Weeks Goal Progress: Goal Met Goal 6:: I final HEP for prophylaxis strength and ROM Goal Time Frame: 6-8 Weeks Goal Progress: Progressing Anticipated Interventions Anticipated Interventions Patient/Client Instruction: Educate patient on: Condition and Plan of Care For the Purpose of:: To decrease pain, To increase ROM, To improve nutrient delivery to tissue, To improve muscle performance and motor function and To increase tolerance to activity/condition/position Therapeutic Exercise to Include: Strength training, Postural training, Flexibilty training, Passive ROM, Active ROM and Scapular Strength/Stabilization For the Purpose of:: To decrease pain, To increase ROM, To improve nutrient delivery to tissue, To improve muscle performance and motor function, To increase tolerance to activity/condition/position and To improve ability of physical actions for home/community/work/leisure Manual Therapy Techniques to Include: Mobilization, Passive ROM and Soft tissue mobilization For the Purpose of:: To decrease pain, To increase ROM, To improve nutrient delivery to tissue, To improve muscle performance and motor function, To increase tolerance to activity/condition/position and To improve ability of physical actions for home/community/work/leisure Cryotherapy (ice pack, ice massage): Yes For the Purpose of:: To increase ROM and To improve nutrient delivery to tissue Re-Evaluation Ending Re-evaluation ending: Please do not hesitate to contact me at [phone] by phone or if you have questions or concerns regarding this new plan of care! Sincerely, Shay Botello, DPT, OCS, CSCS
--- NOTE | 2025-06-10 10:23 | HP.PTDCSUM_ITS ---
Discharge Summary D/C summary: It has been my pleasure to treat CRISTOFER BEE referred by SAM CAMARA, with the diagnosis of OA , RCT R shoulder s/p reverse TSA 03/21/25 for a total of 12 visit(s). Discharge Date: 06/10/25 Please see the following information for a summary of their discharge status. Subjective Subjective: Shoulder doing much better. pain is much better and ROM is good. Limited slightly in reaching up . basic ADLs are getting done. HEP going well. 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 Closed up camper this past weekend without troubles. To doctor 06/23. Pain R shoulder: Pain Intensity (Out of 10): 0 Overall Improvement % Improvement: 90 Objective Objective/Function: 133 AROM flexionj , 140 afteer wall washing. er 34 and IR Si joint on R. strength is good at 4- in all directions except eer 3+ on R. Not painful. Doing weell overalla dn willing to cotninue via HEP. Goals Goal 1:: sleep without waking 6 hours Goal Progress: Goal Met Goal 2:: AROM R shoulder 150 elevation, 55 er, L5 IR without pain Goal Progress: Progressing Goal 3:: shoulder back to 90% normal and 0-1/10 pain at worst Goal Progress: Goal Met Goal 4:: quickdash score 15 or less Goal Progress: Progressing Goal 5:: dress normally and normal ac tivity at [facility] without pain increase Goal Progress: Goal Met Goal 6:: I final HEP for prophylaxis strength and ROM Goal Progress: Goal Met Plan Plan: d/c to HEP , pt to doctor in two weeks. D/C Information Discharge Comments: Pt to continue HEP for ROM and strength adn f/u doctor in 2 weeks. Doing very well with motion, pain, strength and funciton. d/c sentence: If there are questions or concerns regarding this patient's physical therapy, please feel free to call me at [phone]. Thank you for the referral of this patient. Sincerely, Shay Botello, DPT, OCS, CSCS Balance/Gait/Functional tests Balance/Special Test Scores Quick DASH Score: 13.6350 Improvement % Improvement: 90
== END 2025-06-10 19:00 | disposition home or self-care (01) ==
LOC: PT 10:00
PROVIDERS: PCP Family Medicine
DX: M19.011 Primary osteoarthritis, right shoulder (principal); M75.121 Complete rotator cuff tear or rupture of right shoulder, not specified as traumatic
CPT/HCPCS: 97110; 97140; 97161; 97530